=== PATIENT | female | born 1995 | race Caucasian/White ===

== ENCOUNTER → 2016-10-04 | Outpatient (CLI) | payer OTHER ==
[2016-10-04 12:35] LABS: ALBUMIN 3.8 g/dL (3.4-5.0); BILIRUBIN DIRECT 0.13 mg/dL (0.0-0.2); BILIRUBIN TOTAL 0.5 mg/dL (0.20-1.00); FREE T4 0.69 ng/dL (0.76-1.46)
[2016-10-05 10:41] LABS: THYROID PEROXIDASE AB 201 IU/mL (0-34)
== END | disposition home or self-care (01) ==
LOC: US 10:00
PROC: BW40ZZZ Ultrasonography of Abdomen (ICD-10-PCS; principal; 2016-10-04)
DX: E03.9 Hypothyroidism, unspecified (principal); R10.11 Right upper quadrant pain
CPT/HCPCS: 84439; 86376